=== PATIENT | female | born 1940 | race Caucasian/White ===

== ENCOUNTER → 2020-08-17 10:15 | Outpatient (CLI) | payer MEDICARE, OTHER, SELFPAY ==
[2020-08-17 11:36] LABS: COVID19 -Nasal RAPID Negative (Negative)
== END ==
PROVIDERS: PCP Family Medicine; Visit Provider Nurse Practitioner
DX: Z20.822 Contact with and (suspected) exposure to COVID-19 (principal)
CPT/HCPCS: 87635

== ENCOUNTER → 2021-07-09 12:45 | Outpatient (CLI) | payer MEDICARE, OTHER, SELFPAY ==
--- NOTE | 2021-07-09 | DI.MRI.S_ITS ---
BREAST MRI OF BOTH BREASTS: 07/09/2021 CLINICAL: Staging for breast cancer. PROCEDURE: MR BREAST BI WO/W CON INDICATIONS: BREAST CANCER TECHNIQUE: The patient was placed prone in a dedicated breast imaging coil. Precontrast axial STIR and 3D FLASH without fat saturation sequences were obtained. Both before and after bolus injection of contrast, sequential 1-minute axial 3D FLASH with fat saturation sequences for 3 time points, with subtraction images and maximum intensity projections (MIP's) generated. Delayed sagittal FLASH images with fat saturation were also obtained. Computer-aided detection, including computer algorithm analysis of MRI image data for lesion detection and characterization, pharmacokinetic analysis, with further physician review for interpretation, was performed. COMPARISON: [facility], , [place] LEFT BREAST, 06/05/2021, 12:17. FINDINGS: Image quality: Excellent. There is mild background parenchymal enhancement. Right breast: In the right breast 6 o'clock position 6 cm from the nipple and 3.5 cm deep to the skin there is a 6 x 8 x 4 lobular focus of T2 signal with associated enhancement which demonstrates benign type 1 kinetics. No other abnormal focus, mass, or abnormal enhancement. No axillary or internal mammary chain adenopathy. Left breast: In the left upper breast 1 o'clock position there is a signal void consistent with biopsy clip with surrounding enhancing mass measuring 1.3 x 0.6 x 1.2 cm. No additional abnormal focus, mass, or abnormal enhancement. No axillary or internal mammary chain adenopathy. Lymph nodes in the left axilla are normal appearing and symmetric compared to the right. IMPRESSION: KNOWN BIOPSY PROVEN MALIGNANCY 1. Known left breast cancer in the 1 o'clock position with surrounding enhancement measuring 1.3 x 0.6 x 1.2 cm. No additional abnormal foci in the left breast. No left axillary adenopathy. 2. Lobular focus of T2 signal with associated nodular post gadolinium enhancement in the right breast 6 o'clock position as above with benign enhancement characteristics. This could be a benign focus of fibroglandular tissue, however ultrasound of the right breast 6 o'clock position 6 cm from the nipple is recommended to further assess. This exam was interpreted at Station ID: [id number]. Electronically Signed By: Trevon Horton acr/:07/09/2021 21:15:27 Entry: - 07/10/2021 09:48:53 ACR BI-RADS Category 6: Known biopsy proven malignancy [id number]
== END ==
PROVIDERS: PCP Family Medicine; Referring Provider Surgery; Visit Provider Surgery
DX: C50.412 Malignant neoplasm of upper-outer quadrant of left female breast (principal); N64.89 Other specified disorders of breast
CPT/HCPCS: 77049; A9579